=== PATIENT | male | born 1985 ===

== ENCOUNTER 2021-02-26 09:15 | Day surgery (SDC) | payer OTHER ==
[~2021-02-26 09:15] MED LIST: LISINOPRIL10 MG PO
[2021-02-26] MEDS ORDERED: TORADOL PO (11:14)
[2021-02-26 12:02] VITALS: BP 116/70
== END 2021-02-26 12:33 | DRG 352 ==
LOC: ORM 09:15
PROVIDERS: ATTEND Surgery
PROC: 0YU60JZ Supplement Left Inguinal Region with Synthetic Substitute, Open Approach (ICD-10-PCS; principal; 2021-02-26)
DX: K40.90 Unilateral inguinal hernia, without obstruction or gangrene, not specified as recurrent (principal); I10 Essential (primary) hypertension
CPT/HCPCS: C9290; J0131; J2710